=== PATIENT | male | born 1955 | race Caucasian/White ===

== ENCOUNTER 2020-09-04 16:18 | Emergency (ER) | payer MEDICARE, OTHER ==
[2020-09-04] MEDS ORDERED: ASPIRIN81 MG PO (16:35)
[2020-09-04] MEDS ORDERED: LIPITOR40 M1 PO (16:35)
[2020-09-04] MEDS ORDERED: FISH OIL1000 MG PO (16:36)
[2020-09-04] MEDS ORDERED: PROVENTIL0.083 % IN (16:37)
[2020-09-04] MEDS ORDERED: TENORETIC 50 501 TAB PO (16:37)
[2020-09-04] MEDS ORDERED: ADVAIR DISK1 INH (16:38)
[2020-09-04 17:50] VITALS: BP 139/75
== END 2020-09-04 17:55 | disposition home or self-care (01) ==
LOC: ED 16:18
PROC: 0HQ1XZZ Repair Face Skin, External Approach (ICD-10-PCS; principal; 2020-09-04)
DX: S01.81XA Laceration without foreign body of other part of head, initial encounter (principal); S06.0X0A Concussion without loss of consciousness, initial encounter; I10 Essential (primary) hypertension; E78.5 Hyperlipidemia, unspecified; F17.220 Nicotine dependence, chewing tobacco, uncomplicated; W22.8XXA Striking against or struck by other objects, initial encounter; Y93.H9 Activity, other involving exterior property and land maintenance, building and construction; Y92.007 Garden or yard of unspecified non-institutional (private) residence as the place of occurrence of the external cause; Z79.82 Long term (current) use of aspirin

== ENCOUNTER 2020-09-06 09:11 | Emergency (ER) | payer MEDICARE, OTHER ==
[~2020-09-06] VITALS: Ht 182.9 cm; Wt 97.0 kg
[~2020-09-06 09:11] MED LIST: ADVAIR DISK1 INH; ASPIRIN81 MG PO; FISH OIL1000 MG PO; LIPITOR40 M1 PO; PROVENTIL0.083 % IN; TENORETIC 50 501 TAB PO
[2020-09-06 09:57] LABS: HEMATOCRIT 46.1 % (39.0-50.0); HEMOGLOBIN 15.1 g/dl (14.0-18.0); IMMATURE GRANULOCYTES 0.4 % (0.0-5.0); MEAN CELL VOLUME 94.3 fL CALC (80.0-100.0); MEAN CORPUSCULAR HGB 30.9 pG CALC (26.0-32.0); MEAN CORPUSCULAR HGB CONC 32.8 g/dL CAL (32.0-36.0); NEUT# 4.47 thou/uL (1.82-7.42); RED BLOOD COUNT 4.89 mill/uL (4.70-6.10); RED CELL DISTRI WIDTH 13.1 % (11.5-15.5)
[2020-09-06 10:38] LABS: ALBUMIN 4.1 g/dL (3.2-5.0); ALKALINE PHOSPHATASE 68 u/l (38-126); AMYLASE 93 u/l (30-110); BILIRUBIN, TOTAL 0.8 mg/dL (0.0-1.4); BUN 21 mg/dL (8-23); BUN/CREATININE RATIO 26 (12-20 (CALC)); CARBON DIOXIDE 29 mmol/l (22-30); CHLORIDE 100 mmol/l (95-108); CREATININE 0.8 mg/dL (0.7-1.3); GFR > 60 ML/MIN (>=60 (CALC)); GFR FOR AFR.AMER. > 60 ML/MIN (>=60 (CALC)); LIPASE 237 u/l (23-300); SGOT/AST 53 u/l (19-48); TOTAL PROTEIN 7.5 g/dL (6.3-8.2)
[2020-09-06 10:42] LABS: ANION GAP 11 (6-22 (CALC)); POTASSIUM 3.5 mmol/l (3.5-5.1); SODIUM 136 mmol/l (137-146)
[2020-09-06 11:12] LABS: URINE BILIRUBIN - DIPSTICK NEGATIVE (NEGATIVE); URINE BLOOD DIPSTICK NEGATIVE (NEGATIVE); URINE COLOR YELLOW; URINE GLUCOSE - DIPSTICK NEGATIVE (NEGATIVE); URINE KETONE NEGATIVE (NEGATIVE); URINE LEUK ESTERASE NEGATIVE (NEGATIVE); URINE NITRITE - DIPSTICK NEGATIVE (Negative); URINE PROTEIN - DIPSTICK NEGATIVE (NEG-TRACE); URINE SPECIFIC GRAVITY 1.015; URINE UROBILINOGEN - DIPSTICK 0.2 E.U./dL (0.2)
[2020-09-06 12:12] VITALS: BP 131/75
== END 2020-09-06 12:13 | disposition home or self-care (01) ==
LOC: ED 09:11
PROVIDERS: Emergency Medicine
DX: K59.00 Constipation, unspecified (principal); I10 Essential (primary) hypertension; E78.5 Hyperlipidemia, unspecified
CPT/HCPCS: Q9967

== ENCOUNTER 2020-09-11 08:55 | Emergency (ER) | payer MEDICARE, OTHER ==
[~2020-09-11] VITALS: Ht 182.9 cm; Wt 97.0 kg
[2020-09-11] MEDS ORDERED: BACTRIM DS1 TAB PO (09:59)
[2020-09-11 10:01] VITALS: BP 151/90
== END 2020-09-11 10:07 | disposition home or self-care (01) ==
LOC: ED 08:55
DX: S01.81XD Laceration without foreign body of other part of head, subsequent encounter (principal); X58.XXXD Exposure to other specified factors, subsequent encounter; L03.311 Cellulitis of abdominal wall; I10 Essential (primary) hypertension; E78.5 Hyperlipidemia, unspecified; F17.210 Nicotine dependence, cigarettes, uncomplicated

== ENCOUNTER 2021-07-03 09:59 | Day surgery (SDC) | payer MEDICARE, OTHER ==
[~2021-07-03] VITALS: Ht 182.9 cm; Wt 97.5 kg
[~2021-07-03 09:59] MED LIST changes: +BACTRIM DS1 TAB PO; +MULTI VIT PO; +PROVENTIL HFA IN; -PROVENTIL0.083 % IN
[2021-07-03] MEDS ORDERED: TRAMADOL HCL50 MG PO (12:15)
[2021-07-03 12:38] VITALS: BP 133/88
== END 2021-07-03 13:11 | disposition home or self-care (01) ==
LOC: ORM 09:59
PROVIDERS: ATTEND Surgery
PROC: 0WQF0ZZ Repair Abdominal Wall, Open Approach (ICD-10-PCS; principal; 2021-07-03)
DX: K42.9 Umbilical hernia without obstruction or gangrene (principal); I10 Essential (primary) hypertension; E78.5 Hyperlipidemia, unspecified; J45.909 Unspecified asthma, uncomplicated; F17.220 Nicotine dependence, chewing tobacco, uncomplicated
CPT/HCPCS: J1100